=== PATIENT | female | born 1940 | race Caucasian/White ===

== ENCOUNTER → 2017-10-07 | Outpatient (CLI) | payer MEDICARE, OTHER ==
[2013-10-15 10:10] VITALS: BP 136/61
[~2017-10-07] MED LIST: BENA20TA4 PO; DILT120C80 PO; LEVO100T5 PO; SIMV20TA3 PO
--- NOTE | 2017-10-07 10:22 | CARD ---
MR#: [id number] Date of Study: 10/07/2017 Ordering Physician: ROCIO BAUER, Referring Physician: ROCIO BAUER Tech: Ally Terrazas RDCS APPROVED REPORT EXAM: Two-dimensional and M-mode echocardiogram with Doppler and color Doppler. Other Information Quality : Good INDICATION Atrial Fibrillation 2D DIMENSIONS RVDd2.8 (2.9-3.5cm)Left Atrium(2D)3.8 (1.6-4.0cm) IVSd1.1 (0.7-1.1cm)Aortic Root(2D)2.8 (2.0-3.7cm) LVDd3.9 (3.9-5.9cm)LVOT Diameter2.0 (1.8-2.4cm) PWd1.1 (0.7-1.1cm)LVDs2.4 (2.5-4.0cm) FS (%) 30.0 %SV47.9 ml LVEF(%)60.0 (>50%) Aortic Valve AoV Peak Dre.140.7cm/sAoV VTI29.5cm AO Peak GR.7.9mmHgLVOT VTI 28.18cm AO Mean GR.3mmHgAVA (VTI)2.90cm2 Mitral Valve MV E Lqzmuncm203.3cm/sMV DECEL TEYG186cv MV A Vbdrjqso29.9cm/sE/A Ratio1.1 TDI Lateral E' P. V9.82cm/sMedial E' P. V5.80cm/s E/Lateral E'10.4E/Medial E'17.6 Tricuspid Valve TR P. Lcoityzp866iq/sRAP JODKJQRC1kuVv TR Peak Gr.87aoEeYTED00ycQh Pulmonary Vein S1 Grtlwfvb39.7cm/sS2 Tlfelwlr36.57cm/s D2 Xjavhbyi29.6cm/s LEFT VENTRICLE The left ventricle is normal size. There is normal left ventricular wall thickness. The left ventricu lar systolic function is normal and the ejection fraction is within normal range. The Ejection Fracti on is 55-60%. There is normal LV segmental wall motion. Transmitral Doppler flow pattern is Grade II- pseudonormal filling dynamics. RIGHT VENTRICLE The right ventricle is normal size. The right ventricular systolic function is normal. ATRIA The left atrium size is normal. The right atrium size is normal. The interatrial septum is intact wit h no evidence for an atrial septal defect or patent foramen ovale as noted on 2-D or Doppler imaging. AORTIC VALVE The aortic valve is calcified but opens well. Doppler and Color Flow revealed no significant aortic r egurgitation. There is no significant aortic valvular stenosis. MITRAL VALVE The mitral valve is normal in structure and function. There is no evidence of mitral valve prolapse. There is no mitral valve stenosis. Doppler and Color-flow revealed trace mitral regurgitation. TRICUSPID VALVE The tricuspid valve is normal in structure and function. Doppler and Color Flow revealed trace tricus pid regurgitation. The PA pressure was estimated at 26 mmHg. There is no tricuspid valve stenosis. PULMONIC VALVE The pulmonic valve is not well visualized. Doppler and Color Flow revealed no pulmonic valvular regur gitation. There is no pulmonic valvular stenosis. GREAT VESSELS The aortic root is normal in size. The ascending aorta is normal in size. The IVC is normal in size a nd collapses >50% with inspiration. PERICARDIAL EFFUSION There is no evidence of significant pericardial effusion. Critical Notification Critical Value: No <Conclusion> The left ventricular systolic function is normal and the ejection fraction is within normal range. Th e Ejection Fraction is 55-60%. There is normal LV segmental wall motion. Signed by : Miguel Davis, Electronically Approved : 10/07/2017 10:20:53
== END | disposition home or self-care (01) ==
LOC: ECHO 08:47
PROVIDERS: ATTEND Internal Medicine Cardiovascular Disease
DX: I48.0 Paroxysmal atrial fibrillation (principal); I10 Essential (primary) hypertension; E78.5 Hyperlipidemia, unspecified; E03.9 Hypothyroidism, unspecified
CPT/HCPCS: 93306

== ENCOUNTER → 2018-10-22 | Outpatient (CLI) | payer MEDICARE, OTHER ==
[2013-10-15 10:10] VITALS: BP 136/61
[~2018-10-22] MED LIST changes: -DILT120C80 PO; +DILT120C85 PO
--- NOTE | 2018-10-23 13:07 | CARD ---
MR#: [id number] Date of Study: 10/22/2018 Ordering Physician: ROCIO BAUER, Referring Physician: ROCIO BAUER Tech: Ally Terrazas RDCS APPROVED REPORT EXAM: Two-dimensional and M-mode echocardiogram with Doppler and color Doppler. Other Information Quality : Good INDICATION Atrial Fibrillation 2D DIMENSIONS RVDd2.4 (2.9-3.5cm)Left Atrium(2D)3.6 (1.6-4.0cm) IVSd0.9 (0.7-1.1cm)Aortic Root(2D)2.6 (2.0-3.7cm) LVDd5.0 (3.9-5.9cm)LVOT Diameter2.0 (1.8-2.4cm) PWd0.8 (0.7-1.1cm)LVDs2.6 (2.5-4.0cm) FS (%) 30.0 %SV91.4 ml LVEF(%)60.0 (>50%) Aortic Valve AoV Peak Dre.142.3cm/sAoV VTI34.1cm AO Peak GR.8.1mmHgLVOT Peak Dre.151.9cm/s AO Mean GR.4mmHgAVA (VMAX)3.42cm2 LUIS (VTI)3.20cm2 Mitral Valve MV E Remfakis15.0cm/sMV DECEL ZGQY716xn MV A Xbduwqlo13.7cm/sE/A Ratio0.9 Tricuspid Valve TR P. Meuhpizk954do/sRAP BQXVRXXZ8ykYq TR Peak Gr.01dcUoVLUP08zhNk Pulmonary Vein S1 Qksbakjn14.9cm/sD2 Xgqnlmgd66.8cm/s LEFT VENTRICLE The left ventricle is normal size. There is normal left ventricular wall thickness. The left ventricu lar systolic function is normal and the ejection fraction is within normal range. The Ejection Fracti on is 55-60%. There is normal LV segmental wall motion. Transmitral Doppler flow pattern is Grade I-a bnormal relaxation pattern. RIGHT VENTRICLE The right ventricle is normal size. The right ventricular systolic function is normal. ATRIA The left atrium size is normal. The right atrium size is normal. The interatrial septum is intact wit h no evidence for an atrial septal defect or patent foramen ovale as noted on 2-D or Doppler imaging. AORTIC VALVE The aortic valve is calcified but opens well. Doppler and Color Flow revealed no significant aortic r egurgitation. There is no significant aortic valvular stenosis. MITRAL VALVE The mitral valve is calcified but opens well. Mitral annular calcification is mild. There is no evide nce of mitral valve prolapse. There is no mitral valve stenosis. Doppler and Color-flow revealed trac e mitral regurgitation. TRICUSPID VALVE The tricuspid valve is normal in structure and function. Doppler and Color Flow revealed trace tricus pid regurgitation. The PA pressure was estimated at 34 mmHg. There is no tricuspid valve stenosis. PULMONIC VALVE The pulmonic valve is not well visualized. Doppler and Color Flow revealed trace to mild pulmonic malia vular regurgitation. There is no pulmonic valvular stenosis. GREAT VESSELS The aortic root is normal in size. The ascending aorta is normal in size. The IVC is normal in size a nd collapses >50% with inspiration. PERICARDIAL EFFUSION There is no evidence of significant pericardial effusion. Critical Notification Critical Value: No <Conclusion> The left ventricular systolic function is normal and the ejection fraction is within normal range. The left ventricle is normal size. The left ventricular systolic function is normal and the ejection fraction is within normal range. The Ejection Fraction is 55-60%. There is no significant aortic valvular stenosis. Doppler and Color Flow revealed no significant aortic regurgitation. Doppler and Color-flow revealed trace mitral regurgitation. Doppler and Color Flow revealed trace tricuspid regurgitation. The PA pressure was estimated at 34 mmHg. Signed by : Silvestre Milton MD Electronically Approved : 10/22/2018 14:07:47
== END | disposition home or self-care (01) ==
LOC: ECHO 13:03
PROVIDERS: ATTEND Internal Medicine Cardiovascular Disease
DX: I08.8 Other rheumatic multiple valve diseases (principal)
CPT/HCPCS: 93306

== ENCOUNTER → 2018-10-27 | Outpatient (CLI) | payer MEDICARE, OTHER ==
[2013-10-15 10:10] VITALS: BP 136/61
[~2018-10-27] MED LIST changes: +REGADENOSON 0.4 MG/5 ML DISP.SYRIN. IV ONE
--- NOTE | 2018-10-27 14:03 | RAD ---
MR#: [id number] Date of Study: 10/27/2018 Ordering Physician: ROCIO BAUER, Referring Physician: SUKI MAIER Tech: KALEN Mujica, ARRT (R) (N) APPROVED REPORT Test Type: Pharmacological Stress Nurse/Tech: Moni Molina RN Test Indications: Paroxysmal A-fib Cardiac History: Hypertension,smoker Medications: See Electronic Medical Record Medical History: See Electronic Medical Record Resting ECG: A-fib Resting Heart Rate: 50 bpm Resting Blood Pressure: 155/57mmHg Pretest Chest Pain: No chest pain Nurse/Tech Notes S1,S2 irregular and lungs are slightly diminished. Consent: The procedure was explained to the patient in lay terms. Informed consent was witnessed. Mikhail eout was entered into [facility]. History and Stress Test performed by RT Natty (R) (N) Pharm. Details Pharmacologic stress testing was performed using 0.4mg per 5ml of regadenoson given intravenously ove r 7-10 seconds. Stress Symptoms Dyspnea POST EXERCISE Reason for Termination: Infusion complete Target HR: No Max HR: 76 bpm Max Blood Pressure: 151/51mmHg Blood Pressure response to exercise: Normal blood pressure response during stress. Heart Rate response to exercise: WNL Chest Pain: No. Arrhythmia: No. INTERPRETATION Stress EKG Conclusion: The resting EKG shows a sinus bradycardia with mild nonspecific ST segment luisa nges. There are mild ST segment changes with exertion that are not diagnostic for ischemia. No EKG evidence of stressed induced ischemia. Imaging Protocol IMAGE PROTOCOL: Rest Tc-99m/stress Tc-99m 1 day Rest: Stress: Viability: Radiopharm.Tc99m MdkterzwuDj15i Sestamibi Dose10.2mCi 30.8mCi Img Date 10/27/2018 10/27/2018 Inj-Img Cvcl88nbh. 60min. Rest Admin Site:IV - Right AntecubitalAdministrator:RT Natty (R)(N) Stress Admin Site: IV - Right AntecubitalAdministrator: RT Natty (R)(N) STRESS DATA End Diast. Vol.68.0mlLVEDV index BSA37.0ml End Syst. Vol.12.0mlLVESV index BSA7.0ml Myocardial Dbji973.0gEject. Bdavbogt02.0% Stress Scores Regional WT0.00Summed WT0.00 Regional WM0.00Summed WM0.00 LV Perfusion The stress scans show no significant defects. The rest scans show no significant defects. Nuclear imaging shows no reversible ischemia or infarct. Wall Motion The left ventricular systolic function with an ejection fraction of greater than 70%. TID of 1.20. LV Perf. Quant 17 Seg. SSS2.00 17 Seg. SRS1.00 17 Seg. SDS2.00 Stress Defect Extent (% LAD)0.00Rest Defect Extent (% LAD)0.00Rev. Defect Extent (% LAD)0.00 Stress Defect Extent (% LCX) 0.00Rest Defect Extent (% LCX)0.00Rev. Defect Extent (% LCX)0.00 Stress Defect Extent (% RCA)0.00Rest Defect Extent (% RCA)0.00Rev. Defect Extent (% RCA)0.00 Stress Defect Extent (% SURESH)0.00Rest Defect Extent (% SURESH)0.00Rev. Defect Extent (% SURESH)0.00 Conclusion 1. No EKG evidence of stress-induced ischemia. 2. Nuclear imaging shows no reversible ischemia or infarct. 3. Normal left ventricular systolic function with an ejection fraction of greater than 70% and a TID of 1.20. 4. Moderately low risk Lexiscan nuclear stress test. Signed by : Silvestre Milton MD Electronically Approved : 10/27/2018 14:02:39
== END | disposition home or self-care (01) ==
LOC: NM 08:50
PROVIDERS: ATTEND Internal Medicine Cardiovascular Disease
DX: I48.0 Paroxysmal atrial fibrillation (principal); R00.1 Bradycardia, unspecified
CPT/HCPCS: 78452; 93017; A9500; J2785

== ENCOUNTER → 2019-11-02 | Outpatient (CLI) | payer MEDICARE, OTHER ==
[2013-10-15 10:10] VITALS: BP 136/61
[~2019-11-02] MED LIST changes: -DILT120C85 PO; +DILT120C99 PO; -REGADENOSON 0.4 MG/5 ML DISP.SYRIN. IV ONE; +SIMV20TA18 PO; -SIMV20TA3 PO
--- NOTE | 2019-11-02 16:30 | CARD ---
MR#: [id number] Date of Study: 11/02/2019 Ordering Physician: ROCIO BAUER, Referring Physician: ROCIO BAUER Tech: Ally Terrazas RDCS APPROVED REPORT EXAM: Two-dimensional and M-mode echocardiogram with Doppler and color Doppler. Other Information Quality : Good INDICATION Paroxysmal Atrial Fibrillation 2D DIMENSIONS RVDd2.7 (2.9-3.5cm)Left Atrium(2D)3.8 (1.6-4.0cm) IVSd1.1 (0.7-1.1cm)Aortic Root(2D)2.6 (2.0-3.7cm) LVDd4.9 (3.9-5.9cm)LVOT Diameter2.0 (1.8-2.4cm) PWd0.8 (0.7-1.1cm)LVDs3.4 (2.5-4.0cm) FS (%) 29.9 %SV63.2 ml LVEF(%)56.9 (>50%) Aortic Valve AoV Peak Dre.148.5cm/sAoV VTI34.3cm AO Peak GR.8.8mmHgLVOT Peak Dre.155.7cm/s AO Mean GR.4mmHgAVA (VMAX)3.15cm2 LUIS (VTI)3.10cm2 Mitral Valve MV E Ctruwods53.1cm/sMV DECEL ZCGL179zx MV A Kjydsshw877.4cm/sE/A Ratio0.9 Pulmonary Vein S1 Liyyxhvl71.9cm/sD2 Ttxupsjf85.8cm/s LEFT VENTRICLE The left ventricle is normal size. There is normal left ventricular wall thickness. The left ventricu lar systolic function is normal. The Ejection Fraction is 60-65%. There is normal LV segmental wall m otion. Transmitral Doppler flow pattern is Grade I-abnormal relaxation pattern. RIGHT VENTRICLE The right ventricle is normal size. The right ventricular systolic function is normal. ATRIA The left atrium size is normal. The right atrium size is normal. The interatrial septum is intact wit h no evidence for an atrial septal defect or patent foramen ovale as noted on 2-D or Doppler imaging. AORTIC VALVE The aortic valve is normal in structure and function. Doppler and Color Flow revealed no significant aortic regurgitation. There is no significant aortic valvular stenosis. MITRAL VALVE The mitral valve is normal in structure and function. There is no evidence of mitral valve prolapse. There is no mitral valve stenosis. Doppler and Color Flow revealed no mitral valve regurgitation note d. TRICUSPID VALVE The tricuspid valve is normal in structure and function. Doppler and Color Flow revealed trace tricus pid valve regurgitation. There is no tricuspid valve stenosis. PULMONIC VALVE The pulmonic valve is not well visualized. Doppler and Color Flow revealed trace pulmonic valvular re gurgitation. There is no pulmonic valvular stenosis. GREAT VESSELS The aortic root is normal in size. The ascending aorta is normal in size. The IVC is normal in size a nd collapses >50% with inspiration. PERICARDIAL EFFUSION There is no evidence of significant pericardial effusion. Critical Notification Critical Value: No <Conclusion> The left ventricular systolic function is normal. The Ejection Fraction is 60-65%. There is normal LV segmental wall motion. Transmitral Doppler flow pattern is Grade I-abnormal relaxation pattern. Trace tricuspid valve regurgitation. There is no evidence of significant pericardial effusion. Signed by : Rocio Bauer, Electronically Approved : 11/02/2019 16:29:35
== END | disposition home or self-care (01) ==
LOC: ECHO 10:37
PROVIDERS: ATTEND Internal Medicine Cardiovascular Disease
DX: I48.0 Paroxysmal atrial fibrillation (principal)
CPT/HCPCS: 93306

== ENCOUNTER → 2020-11-23 | Outpatient (CLI) | payer MEDICARE, OTHER ==
[2013-10-15 10:10] VITALS: BP 136/61
--- NOTE | 2020-11-24 07:45 | CARD ---
MR#: [id number] Date of Study: 11/23/2020 Ordering Physician: ROCIO BAUER, Referring Physician: ROCIO BAUER Tech: Mariajose Cuevas MATTHEW APPROVED REPORT EXAM: Two-dimensional and M-mode echocardiogram with Doppler and color Doppler. Other Information Quality : AverageHR: 55bpm Rhythm : NSRTechnically limited study due to body habitus. INDICATION COPD RISK FACTORS Hypertension 2D DIMENSIONS RVDd2.8 (2.9-3.5cm)Left Atrium(2D)4.2 (1.6-4.0cm) IVSd1.2 (0.7-1.1cm)Aortic Root(2D)3.2 (2.0-3.7cm) LVDd4.2 (3.9-5.9cm)LVOT Diameter1.8 (1.8-2.4cm) PWd1.2 (0.7-1.1cm)LVDs2.3 (2.5-4.0cm) FS (%) 45.8 %SV62.3 ml LVEF(%)77.5 (>50%) Aortic Valve AoV Peak Dre.133.6cm/sAoV VTI37.3cm AO Peak GR.7.1mmHgLVOT Peak Dre.127.8cm/s AO Mean GR.3mmHgAVA (VMAX)2.45cm2 Mitral Valve MV E Allponaw79.0cm/sMV DECEL UTMA297ej MV A Eqstvrhe20.2cm/sE/A Ratio1.0 Pulmonary Valve PV Peak Ihzwwjvb406.4cm/s LEFT VENTRICLE The left ventricle is normal size. There is borderline to mild concentric left ventricular hypertroph y. The left ventricular systolic function is normal and the ejection fraction is within normal range. Estimated ejection fraction 60% There is normal LV segmental wall motion. Transmitral Doppler flow p attern is Grade I-abnormal relaxation pattern. RIGHT VENTRICLE The right ventricle is normal size. There is normal right ventricular wall thickness. The right ventr icular systolic function is normal. ATRIA The left atrium size is normal. The right atrium size is normal. The interatrial septum is intact wit h no evidence for an atrial septal defect or patent foramen ovale as noted on 2-D or Doppler imaging. AORTIC VALVE The aortic valve is normal in structure and function. Doppler and Color Flow revealed no significant aortic regurgitation. There is no significant aortic valvular stenosis. MITRAL VALVE The mitral valve is normal in structure and function. There is no evidence of mitral valve prolapse. There is no mitral valve stenosis. Doppler and Color-flow revealed mild mitral regurgitation. TRICUSPID VALVE The tricuspid valve is normal in structure and function. Doppler and Color Flow revealed no tricuspid valve regurgitation noted. There is no tricuspid valve stenosis. PULMONIC VALVE Doppler and Color Flow revealed trace to mild pulmonic valvular regurgitation. There is no pulmonic v alvular stenosis. GREAT VESSELS The aortic root is normal in size. The ascending aorta is normal in size. The IVC is normal in size a nd collapses >50% with inspiration. PERICARDIAL EFFUSION There is no evidence of significant pericardial effusion. Critical Notification Critical Value: No <Conclusion> The left ventricular systolic function is normal and the ejection fraction is within normal range. E stimated ejection fraction 60% There is normal LV segmental wall motion. Signed by : Miguel Davis, Electronically Approved : 11/24/2020 07:45:35
== END ==
LOC: ECHO 10:37
PROVIDERS: ATTEND Internal Medicine Cardiovascular Disease
DX: I08.8 Other rheumatic multiple valve diseases (principal); I48.0 Paroxysmal atrial fibrillation; J44.9 Chronic obstructive pulmonary disease, unspecified
CPT/HCPCS: 93306